=== PATIENT | male | born 1960 | race Hispanic/Latino ===

== ENCOUNTER 2017-09-16 09:07 | Day surgery (SDC) | payer MEDICARE ==
[2017-09-16] MEDS ORDERED: NACL 0.9% 1000 ML 1,000 ML ONE (09:57)
--- NOTE | 2017-09-16 10:02 | Anesthesia Consultation ---
Anesthesia Consult and Med Hx Date of service: 09/16/17 - Airway Anesthetic Teeth Evaluation: Poor (multiple broken to the roots) ROM Head & Neck: Adequate Mental/Hyoid Distance: Adequate Mallampati Class: Class II Intubation Access Assessment: Probably Good - Pre-Operative Health Status ASA Pre-Surgery Classification: ASA3 Proposed Anesthetic Plan: MAC - Pulmonary Hx Smoking: No - Cardiovascular System Hx Hypertension: Yes (on diuretics) - Central Nervous System Hx Psychiatric Problems: Yes (autism, non-verbal, MENTAL RETARD. W/PSYCHOSIS) - Endocrine Hx Hypothyroidism: Yes
--- NOTE | 2017-09-16 10:02 | Anesthesia Day of Surgery ---
Anesthesia Day of Surgery - Day of Surgery Patient Examined: Yes Patient H&P Reviewed: Yes Patient is NPO: Yes
[2017-09-16] MEDS ORDERED: NACL 0.9% 1000 ML 1,000 ML IV SCH (11:00)
[2017-09-16] MEDS ORDERED: DIPRIVAN 10 MG/ML IV ONE ×3 (12:32→13:27)
--- NOTE | 2017-09-16 14:08 | Operative Report ---
Operative Report Operative Report: Date of procedure: 09/16/2017 Procedure: Colonoscopy with Multiple Snare polypectomy, Multiple Hot Biopsy Polypectomies, Ablation of multiple polyps and submucosal injection. Attending physician: Gumaro Rob MD Outer Diameter Technician: Gumaro Rob MD Indication: Patient is a 57-year-old male who presents for screening colonoscopy. This colonoscopy serves to evaluate patient so that treatment may be directed based on the findings. Consent: Informed consent was obtained after advising the patient and family regarding nature of this procedure, its indications, potential benefits as well as possible complications including but not limited to bleeding perforation and adverse reaction to medication, infection as well as other cardiopulmonary complications. An informed written and verbal consent was then obtained after due opportunity was provided for questions and answers. Monitoring: Patient was monitored continuously with pulse oximetry and electrocardiographic recordings as well as blood pressure recordings. Vital signs remained stable throughout this procedure with no untoward events. Preoperative assessment: Patient was assessed immediately prior to this procedure for capacity to tolerate monitored anesthesia care and moderate sedation as well as general anesthesia. Patient's ASA classification is 2, Mallampati class is 2, Hyomental distance is 3. Instrument: [email or web address] video colonoscope Medications: Propofol given intravenously in divided doses. For details please refer to anesthesia records. Description of procedure: Patient was placed in the left lateral decubitus position after achieving sedation, a digital rectal examination was performed following which the colonoscope was introduced into the anal verge and advanced to the cecum which was identified by the cecal valve, the appendiceal orifice, as well as by the cecal strap and direct transillumination. The colonoscope was subsequently withdrawn with careful inspection of all mucosal surfaces. Patient tolerated this procedure well and was subsequently taken to the recovery room. The following findings were noted. Findings: Patient had thick liquid stool seen in various sections of the colon. There was a broad-based 1.5 cm polyp seen in the distal ascending colon. This was elevated with submucosal injection of saline and removed by snare electrocautery. There was an adjoining 5 mm polyp which was flat and was removed by hot biopsy polypectomy. At the hepatic flexure, there were 2, 6 mm sessile polyps that were removed by hot biopsy polypectomy and retrieved. In the rectum, there were multiple diminutive polyps. One of the polyps was removed by hot biopsy polypectomy. All the polyps in the rectum were flat. An attempt was made to elevate one of them with submucosal injection however this was not fully elevated therefore was subsequently removed by hot biopsy polypectomy. Multiple diminutive polyp were then ablated. In all about there were 5 diminutive flat polyps in the rectum. Patient was noted to have internal hemorrhoids seen on the retroflexed view at the anal verge. Impression: Ascending colon polyp status post snare polypectomy and submucosal injection Ascending colon polyps status post hot biopsy polypectomy. Hepatic flexure colon polyps status post hot biopsy polypectomy. Rectal polyps status post hot biopsy polypectomy. Rectal polyps status post ablation. Internal hemorrhoids. Retained stool Plan: Follow pathology report. High-fiber diet. Repeat colonoscopy in 1 year, due to retained stool and multiple colon polyps.
--- NOTE | 2017-09-16 14:09 | Discharge Summary ---
Short Stay Discharge Plan Activity: advance as tolerated Weight Bearing Status: Weight Bear as Tolerated Diet: regular Follow up with: LEE CONKLIN MD [Primary Care Provider] - 7 Days
[2017-09-16 14:21] VITALS: BP 112/65
--- NOTE | 2017-09-16 14:39 | Post Anesthesia Evaluation ---
- Post Anesthesia Evaluation Patient Participated: Yes Airway Patent: Yes Stable Respiratory Function: Yes Nausea/Vomiting: No Temp > 96.8F: Yes Pain Manageable: Yes Adequeate Hydration: Yes Anesthesia Complications: No
== END 2017-09-16 09:08 | disposition home or self-care (01) ==
LOC: GIO 09:07
PROVIDERS: ATTEND Internal Medicine Gastroenterology
DX: Z12.11 Encounter for screening for malignant neoplasm of colon (principal); D12.2 Benign neoplasm of ascending colon; D12.3 Benign neoplasm of transverse colon; K64.8 Other hemorrhoids; G47.00 Insomnia, unspecified; F79 Unspecified intellectual disabilities; E03.9 Hypothyroidism, unspecified; I10 Essential (primary) hypertension; F84.0 Autistic disorder; F41.9 Anxiety disorder, unspecified
CPT/HCPCS: 45384; 45388; 45390; 88305; J2704; J7030